=== PATIENT | female | born 1960 | race African-American/Black ===

== ENCOUNTER 2016-11-28 11:10 | Emergency (ER) | payer BC | END 2016-11-28 12:50 | disposition home or self-care (01) | LOC: ER 11:10 | DX: M79.672 Pain in left foot (principal); I10 Essential (primary) hypertension; E78.5 Hyperlipidemia, unspecified; E11.9 Type 2 diabetes mellitus without complications; Z90.710 Acquired absence of both cervix and uterus | CPT/HCPCS: 73630-LT; 99283 ==